=== PATIENT | female | born 1980 | race Caucasian/White ===

== ENCOUNTER 2016-10-08 14:43 | Emergency (ER) | payer MEDICAID ==
--- NOTE | 2016-10-08 15:03 | ED Physician Chart ---
Chief Complaint/HPI - Patient Information Date Seen:: 10/08/16 Time Seen:: 14:17 Chief Complaint:: chest congestion History of Present Illness:: this is an obese female with recurrent bouts of chest congestion associated with coughing especially at night. she states that she has had pneumonia multiple times. she denies smoking and diabetes mellitus.. she denies heart disease. she was treated for bronchitis several times in the last three months. she denies nausea and vomiting. Allergies:: Allergies Allergy/AdvReac Type Severity Reaction Status Date / Time No Known Allergies Allergy Verified 06/16/16 17:23 Historian:: Patient Review:: Nurse's Note Reviewed Review of Systems - Review of Systems General/Constitutional: No fever, No chills, No weight loss, No weakness, No diaphoresis, No edema, No loss of appetite Skin: No skin lesions, No rash, No bruising Head: No headache, No light-headedness Eyes: No loss of vision, No pain, No diplopia ENT: No earache, No nasal drainage, No sore throat, No tinnitus Neck: No neck pain, No swelling, No thyromegaly, No stiffness, No mass noted Cardio Vascular: No chest pain, No palpitations, No PND, No orthopnea, No edema Pulmonary: No SOB, Cough, Sputum, Wheezing GI: No nausea, No vomiting, No diarrhea, No pain, No melena, No hematochezia, No constipation, No hematemesis G/U: No dysuria, No frequency, No hematuria Musculoskeletal: No bone or joint pain, No back pain, No muscle pain Endocrine: No polyuria, No polydipsia Psychiatric: No prior psych history, No depression, No anxiety, No suicidal ideation Hematopoietic: No bruising, No lymphadenopathy Allergic/Immuno: No urticaria, No angioedema Neurological: No syncope, No focal symptoms, No weakness, No paresthesia, No headache, No seizure, No dizziness, No confusion, No vertigo Past Medical History - Past Medical History Past Medical History: Asthma/COPD Family History: Heart disease, HTN, Cancer Social History: Non Smoker, No Alcohol, No Drug Use Surgical History: Psychiatricy History: None Medication: Reviewed Family Medical History - Family Member Mother History Unknown: Yes Ethnicity: Living Status: Still Living Hx Family Coronary Artery Disease: Yes Hx Family Hypertension: Yes Father History Unknown: Yes Living Status: Sister History Unknown: Yes Living Status: Hx Family Cancer: Yes (cervical) Maternal Grandmother History Unknown: Yes Living Status: Hx Family Cancer: Yes Physical Exam - Physical Examination General/Constitutional: Awake, Well-developed, well-nourished, Alert, No distress, GCS 15, Non-toxic appearing, Ambulatory Other Gen/Cons comments:: obese Head: Atraumatic Eyes: Lids, conjuctiva normal, PERRL, EOMI Skin: Nl inspection, No rash, No skin lesions, No ecchymosis, Well hydrated, No lymphadenopathy ENMT: External ears, nose nl, Nasal exam nl, Lips, teeth, gums nl Neck: Nontender, Full ROM w/o pain, No JVD, No nuchal rigidity, No bruit, No mass, No stridor Respiratory: Nl effort/Exclusion Other Respiratory comments:: both lungs are congested with diffuse rhonchi and wheezes. Cardio Vascular: RRR, No murmur, gallop, rubs, NL S1 S2 GI: No tenderness/rebounding/guarding, No organomegaly, No hernia, Normal BS's, Nondistended, No mass/bruits, No McBurney tenderness : No CVA tenderness Extremities: No tenderness or effusion, Full ROM, normal strength in all extremities, No edema, Normal digits & nails Neuro/Psych: Alert/oriented, DTR's symmetric, Normal sensory exam, Normal motor strength, Judgement/insight normal, Mood normal, Normal gait, No focal deficits Misc: normal gait, Normal back, No paraspinal tenderness Labs/Radiology/EKG Results - Lab Results Results: Abnormal Lab Results 10/08/16 10/08/16 10/08/16 14:15 14:15 15:13 WBC RBC Hgb Hct MCV MCH MCHC Differential RDW Plt Count MPV Neutrophils (Manual) Lymphocytes Monocytes Eosinophils Basophils Platelet Estimate Platelet Morphology Anisocytosis Microcytosis RBC Morph Micro Appear Sodium Potassium Chloride Carbon Dioxide Anion Gap BUN Creatinine Est GFR ( Amer) Est GFR (Non-Af Amer) BUN/Creatinine Ratio Glucose Calcium Total Bilirubin AST ALT Alkaline Phosphatase Troponin I B-Natriuretic Peptide Total Protein Albumin Globulin Albumin/Globulin Ratio Triglycerides 208 H Cholesterol 166 LDL Cholesterol Direct 120 HDL Cholesterol 27 TSH Urine Source CLEAN C Urine Color YELLOW Urine Clarity CLEAR Urine pH 5.5 Ur Specific [place] Urine Protein TRACE Urine Glucose (UA) NEGATIVE Urine Ketones NEGATIVE Urine Blood TRACE Urine Nitrate NEGATIVE Urine Bilirubin NEGATIVE Urine Urobilinogen 0.2 Ur Leukocyte Esterase NEGATIVE Urine RBC 0-2 Urine WBC 0-2 Ur Epithelial Cells FEW Urine Bacteria OCCASIONAL Urine Test NEGATIVE 10/08/16 10/08/16 10/08/16 15:13 15:13 15:13 WBC 6.1 D RBC 4.19 Hgb 11.2 L Hct 33.4 L MCV 79.7 L MCH 26.8 L MCHC Differential 33.6 RDW 13.5 Plt Count 303 D MPV 7.3 Neutrophils (Manual) 56 Lymphocytes 34 Monocytes 4 Eosinophils 5 Basophils 1 Platelet Estimate ADEQUATE Platelet Morphology NORMAL Anisocytosis 1+ Microcytosis 1+ RBC Morph Micro Appear ABNORMAL Sodium 135 L Potassium 3.7 Chloride 106 Carbon Dioxide 25.1 Anion Gap 7.6 BUN 11 Creatinine 0.6 Est GFR ( Amer) > 60.0 Est GFR (Non-Af Amer) > 60.0 BUN/Creatinine Ratio 18.3 Glucose 134 H Calcium 9.5 Total Bilirubin 0.2 L AST 17 ALT 24 Alkaline Phosphatase 44 Troponin I < 0.01 L B-Natriuretic Peptide Total Protein 7.0 Albumin 4.1 Globulin 2.9 Albumin/Globulin Ratio 1.4 Triglycerides Cholesterol LDL Cholesterol Direct HDL Cholesterol TSH Urine Source Urine Color Urine Clarity Urine pH Ur Specific [place] Urine Protein Urine Glucose (UA) Urine Ketones Urine Blood Urine Nitrate Urine Bilirubin Urine Urobilinogen Ur Leukocyte Esterase Urine RBC Urine WBC Ur Epithelial Cells Urine Bacteria Urine Test 10/08/16 10/08/16 15:13 15:13 WBC RBC Hgb Hct MCV MCH MCHC Differential RDW Plt Count MPV Neutrophils (Manual) Lymphocytes Monocytes Eosinophils Basophils Platelet Estimate Platelet Morphology Anisocytosis Microcytosis RBC Morph Micro Appear Sodium Potassium Chloride Carbon Dioxide Anion Gap BUN Creatinine Est GFR ( Amer) Est GFR (Non-Af Amer) BUN/Creatinine Ratio Glucose Calcium Total Bilirubin AST ALT Alkaline Phosphatase Troponin I B-Natriuretic Peptide 9.4 Total Protein Albumin Globulin Albumin/Globulin Ratio Triglycerides Cholesterol LDL Cholesterol Direct HDL Cholesterol TSH 1.94 Urine Source Urine Color Urine Clarity Urine pH Ur Specific [place] Urine Protein Urine Glucose (UA) Urine Ketones Urine Blood Urine Nitrate Urine Bilirubin Urine Urobilinogen Ur Leukocyte Esterase Urine RBC Urine WBC Ur Epithelial Cells Urine Bacteria Urine Test - Radiology Results Results: chest x-ray = increased marking of both lungs. - EKG Interpretations EKG Time:: 14:59 Rhythm: nsr Valders: left Rate: 83 ED Septic Shock - . Is Septic Shock (SBP<90, OR Lactate>4 mmol\L) present?: No Reassessment (Disposition) - Reassessment Reassessment Condition:: Improved - Diagnosis Diagnosis:: bronchitis obesity - Aftercare/Follow up Instructions Aftercare/Follow-Up Instructions:: Counseled pt regarding lab results/diagnosis & need follow up, Refer to Discharge Instructions, Counseled pt & family regarding lab results/diagnosis & need follow up - Patient Disposition Discharge/Transfer:: Home
[2016-10-08 15:31] LABS: HEMATOCRIT 33.4 % (35.0-45.0); HEMOGLOBIN 11.2 gm/dL (11.7-15.5); MEAN CELL VOLUME 79.7 fl (81-100); MEAN CORPUSCULAR HEMOGLOBIN 26.8 pg (27.0-31.0); MEAN CORPUSCULAR HGB CONC 33.6 pg (28.0-36.0); MEAN PLATELET VOLUME 7.3 fl; RED BLOOD COUNT 4.19 Mil/cmm (3.80-5.10); RED CELL DISTRIBUTION WIDTH 13.5 % (11.5-20.0)
[2016-10-08 15:38] LABS: PLATELET COUNT 303 Th/cmm (150-400); WHITE BLOOD COUNT 6.1 Th/cmm (4.8-10.8)
[2016-10-08 15:48] LABS: ALB/GLOB RATIO 1.4 (1.0-1.8); ALKALINE PHOSPHATASE 44 U/L (34-104); ANION GAP 7.6 (7.0-16.0); BILIRUBIN,TOTAL 0.2 mg/dL (0.3-1.0); BUN - UREA NITROGEN 11 mg/dL (7-25); BUN/CREATININE RATIO 18.3; CALCIUM SERUM 9.5 mg/dL (8.6-10.3); CARBON DIOXIDE 25.1 mEq/L (21.0-31.0); CHLORIDE 106 mEq/L (98-107); CHOLESTEROL 166 mg/dL (<200); CREATININE - SERUM 0.6 mg/dL (0.6-1.2); GLUCOSE 134 mg/dL (70-105); POTASSIUM SERUM 3.7 mEq/L (3.5-5.1); SGOT 17 U/L (13-39); SGPT/ALT 24 U/L (7-52); SODIUM SERUM 135 mEq/L (136-145); TRIGLYCERIDES 208 mg/dL (<150)
[2016-10-08] MEDS ORDERED: Acetaminophen 500 MG TAB ONE (15:48)
[2016-10-08 16:11] LABS: URINE BILIRUBIN NEGATIVE (NEGATIVE); URINE COLOR YELLOW; URINE GLUCOSE (UA) NEGATIVE (NEGATIVE); URINE KETONE NEGATIVE (NEGATIVE)
[2016-10-08 16:12] LABS: URINE BACTERIA OCCASIONAL /hpf (NONE SEEN); URINE BLOOD TRACE (NEGATIVE); URINE EPITHELIAL CELLS FEW /lpf (FEW); URINE PH 5.5; URINE PROTEIN TRACE mg/dL (NEGATIVE); URINE RBC 0-2 /hpf (0-5); URINE UROBILINOGEN 0.2 E.U./dL (0.2 - 1.0); URINE WBC 0-2 /hpf (0-5)
[2016-10-08] MEDS ORDERED: Albuterol/Ipratropium Neb 3 ML AERS HHN ONE ×2 (16:15→16:26)
[2016-10-08 16:31] LABS: ANISOCYTOSIS 1+; BASOPHIL 1 % (0-3); EOSINOPHIL 5 % (0-5); MICROCYTOSIS 1+; NEUTROPHILS 56 % (40-80); PLATELET ESTIMATE ADEQUATE (NORMAL); PLATELET MORPHOLOGY NORMAL (NORMAL); TOTAL CELLS COUNTED 100
[2016-10-08] MEDS ORDERED: HYDROmorphone 1 mg/mL 1mL Syr IM STA (16:46)
[2016-10-08] MEDS ORDERED: HYDROmorphone 1 mg/mL 1mL Syr IVP STA (16:46)
[2016-10-08] MEDS ORDERED: HYDROmorphone 2 mg/mL 1mL Vial ONE (16:52)
[2016-10-08 18:01] VITALS: BP 00/00
--- NOTE | 2016-10-09 09:02 | Diagnostic Imaging Report ---
Portable chest x-ray History: Shortness of breath Allowing for portable technique the heart size is normal. No focal pulmonary parenchymal processes. No hilar or mediastinal abnormalities. Impression: No acute abnormalities.
== END 2016-10-08 17:40 | disposition short-term general hospital (02) ==
LOC: ER 14:43
DX: J40 Bronchitis, not specified as acute or chronic (principal); E66.9 Obesity, unspecified
CPT/HCPCS: 99285; 71010; 96372 ×3; 94640; 93005; 84484; 83880; 36415; 84443; 86592; 85007; 85027; 81001; 81025; 80053; 80061; 87040 ×2; Q0162; J0696; J2930; J1170; Z7610

== ENCOUNTER 2018-01-26 20:10 | Emergency (ER) | payer MEDICAID ==
[2018-01-26] MEDS ORDERED: Albuterol/Ipratropium Neb 3 ML AERS HHN ONE ×2 (20:33→20:45)
--- NOTE | 2018-01-27 00:25 | ED Physician Chart ---
ED Chief Complaint/HPI - Patient Information Date Seen:: 01/26/18 Time Seen:: 20:30 Chief Complaint:: DYSPNEA COUGH History of Present Illness:: 37 YR OLD FEMALE WITH HX OF COUGH ASTHMA FOR ONE WK NON,V,D Allergies:: Allergies Allergy/AdvReac Type Severity Reaction Status Date / Time No Known Allergies Allergy Verified 06/16/16 17:23 Vitals:: Vital Signs - 8 hr 01/26/18 01/26/18 01/26/18 20:15 20:48 22:15 Temp 99.4 F 98.7 F HR 106 100 91 RR 18 18 18 BP 143/84 140/78 O2 Sat % 97 97 96 Historian:: Patient ED Review of Systems - Review of Systems General/Constitutional: No fever, No chills, No weight loss, No weakness, No diaphoresis, No edema, No loss of appetite Skin: No skin lesions, No rash, No bruising Head: No headache, No light-headedness Eyes: No loss of vision, No pain, No diplopia ENT: No earache, No nasal drainage, No sore throat, No tinnitus Neck: No neck pain, No swelling, No thyromegaly, No stiffness, No mass noted Cardio Vascular: Chest pain, No palpitations, No PND, No orthopnea, No edema Pulmonary: SOB, Cough, No cough, Sputum, No wheezing GI: No nausea, No vomiting, No diarrhea, No pain, No melena, No hematochezia, No constipation, No hematemesis G/U: No dysuria, No frequency, No hematuria Musculoskeletal: No bone or joint pain, No back pain, No muscle pain Endocrine: No polyuria, No polydipsia Psychiatric: No prior psych history, No depression, No anxiety, No suicidal ideation Hematopoietic: No bruising, No lymphadenopathy Allergic/Immuno: No urticaria, No angioedema Neurological: No syncope, Focal symptoms, Weakness, No paresthesia, No headache , No seizure, No dizziness, No confusion, No vertigo Family Medical History - Family Member Mother History Unknown: Yes Ethnicity: Living Status: Still Living Hx Family Coronary Artery Disease: Yes Hx Family Hypertension: Yes Father History Unknown: Yes Living Status: Sister History Unknown: Yes Living Status: Hx Family Cancer: Yes (cervical) Maternal Grandmother History Unknown: Yes Living Status: Hx Family Cancer: Yes ED Labs/Radiology/EKG Results - Lab Results Results: Laboratory Tests 01/26/18 20:59 Urine Test NEGATIVE ED Septic Shock - . Is Septic Shock (SBP<90, OR Lactate>4 mmol\L) present?: No - <6hrs of presentation: Vital Signs: Vital Signs - 8 hr 01/26/18 01/26/18 01/26/18 20:15 20:48 22:15 Temp 99.4 F 98.7 F HR 106 100 91 RR 18 18 18 BP 143/84 140/78 O2 Sat % 97 97 96 ED Reassessment (Disposition) - Reassessment Reassessment Condition:: Improved - Aftercare/Follow up Instructions Aftercare/Follow-Up Instructions:: Counseled pt regarding lab results/diagnosis & need follow up, Counseled pt & family regarding lab results/diagnosis & need follow up (GROUP ) ED Discharge Plan - Patient Disposition Instructions: Bronchitis, [id number] Additional Instructions: MAKE A FOLLOW UP WITH PRIMARY MEDICAL DOCTOR HANS, COMPLY WITH PRESCRIBED MEDICATION.
--- NOTE | 2018-01-27 10:20 | Diagnostic Imaging Report ---
Portable chest x-ray Time: 2130 History: Cough Allowing for portable technique the heart size is normal. No focal pulmonary parenchymal processes. No hilar or mediastinal abnormalities. Impression: No acute abnormalities.
== END 2018-01-27 00:25 | disposition home or self-care (01) ==
LOC: ER 20:10
DX: R06.00 Dyspnea, unspecified (principal); R05 Cough; J45.909 Unspecified asthma, uncomplicated
CPT/HCPCS: 99285; 96372; 93005; 71045; 81025; J0696